=== PATIENT | female | born 1930 | race Caucasian/White ===

== ENCOUNTER 2019-02-24 10:07 | Outpatient (CLI) | payer MEDICARE ==
--- NOTE | 2019-02-24 12:21 | ULT ---
RIGHT UPPER QUADRANT ULTRASOUND: Date: 02/24/19 HISTORY: Right upper quadrant pain. FINDINGS: The liver appears unremarkable. The gallbladder is mildly distended without significant gallbladder w all thickening or pericholecystic fluid. There is mobile debris within the gallbladder without defini tive shadowing, concerning for sludge or very small sand-like stones. Common bile duct 0.6 cm. Visual ized pancreas and right kidney are unremarkable. IMPRESSION: Borderline size gallbladder with some mobile debris within the gallbladder, possibly sludge or very t iny sand-like stones. Consider follow-up nonemergent nuclear medicine hepatobiliary scan for further assessment. POS: [facility]
== END 2019-02-24 10:08 | disposition home or self-care (01) ==
LOC: SCSULT 10:07
PROVIDERS: ATTEND Family Medicine
DX: R10.11 Right upper quadrant pain (principal); R93.2 Abnormal findings on diagnostic imaging of liver and biliary tract
CPT/HCPCS: 76705